=== PATIENT | female | born 1970 | race Caucasian/White ===

== ENCOUNTER → 2017-05-02 | Outpatient (CLI) | payer BC | LOC: MAMO 13:00 | DX: Z12.31 Encounter for screening mammogram for malignant neoplasm of breast (principal) | CPT/HCPCS: G0202 ==

== ENCOUNTER → 2021-09-15 | Outpatient (CLI) | payer BC | LOC: MAMO 07:21 | DX: Z12.31 Encounter for screening mammogram for malignant neoplasm of breast (principal) | CPT/HCPCS: 77063; 77067 ==

== ENCOUNTER → 2021-11-07 | Day surgery (SDC) | payer BC ==
[~2021-11-07] MED LIST: FLOVENT DISKUS50 MCG INH; KEPPRA 500 MG500 MG PO; METOPROLOL SUCC25 MG PO; MYCOSTATIN OINT15 GM TOP; TOPAMAX100 MG PO; VITAMIN B12-FO1 EACH PO; ZYRTEC10 MG PO
== END | disposition home or self-care (01) ==
LOC: OR 07:55
DX: R19.5 Other fecal abnormalities (principal); D17.5 Benign lipomatous neoplasm of intra-abdominal organs; K57.30 Diverticulosis of large intestine without perforation or abscess without bleeding; G40.909 Epilepsy, unspecified, not intractable, without status epilepticus; I10 Essential (primary) hypertension; R73.03 Prediabetes; Z87.19 Personal history of other diseases of the digestive system; Z88.8 Allergy status to other drugs, medicaments and biological substances; Z20.822 Contact with and (suspected) exposure to COVID-19
CPT/HCPCS: 84703; J2250; J2704; J7120

== ENCOUNTER → 2021-12-08 | Outpatient (CLI) | payer BC | LOC: KOH-I 16:04 | DX: M47.22 Other spondylosis with radiculopathy, cervical region (principal) | CPT/HCPCS: 72040 ==

== ENCOUNTER 2022-03-20 08:18 | Observation (INO) | payer BC ==
[~2022-03-20] VITALS: Ht 170.2 cm; Wt 131.5 kg
[~2022-03-20 08:18] MED LIST changes: -FLOVENT DISKUS50 MCG INH; +FLOVENT DISKUS50 MCG PO; -METOPROLOL SUCC25 MG PO
[2022-03-20] MEDS ORDERED: METOPROLOL SUCC25 MG PO (09:01)
[2022-03-20 09:10] LABS: RED BLOOD COUNT 5.02 M/UL (4.00-5.10); WHITE BLOOD COUNT 11.1 K/UL (4.5-11.0)
[2022-03-20 09:41] LABS: BUN/CREATININE RATIO 19 (0-10)
[2022-03-20] MEDS ORDERED: METAXALONE800 MG PO (12:26)
[2022-03-21] MEDS ORDERED: COZAAR 50MG TAB50 MG PO (11:55)
== END 2022-03-21 13:43 | disposition home or self-care (01) ==
LOC: ER1 08:18 → CDU 10:53 → M/S 10:53 → CDU 10:53 → M/S 14:04
PROVIDERS: Emergency Medicine; ADMIT Family Medicine
DX: G45.9 Transient cerebral ischemic attack, unspecified (principal); I10 Essential (primary) hypertension; R56.9 Unspecified convulsions; E04.1 Nontoxic single thyroid nodule; R73.03 Prediabetes; Z90.49 Acquired absence of other specified parts of digestive tract; Z20.822 Contact with and (suspected) exposure to COVID-19
CPT/HCPCS: 70450; 70496; 70498; 71045; 80053; 80061; 82550; 82553; 84439; 84443; 84484; 85025; 85610; 85730; 93005; 99285; G0378; Q9967; U0002